=== PATIENT | male | born 1965 | race Caucasian/White ===

== ENCOUNTER 2022-01-14 13:53 | Emergency (ER) | payer MEDICARE, MEDICAID ==
[~2022-01-14] VITALS: Ht 182.9 cm; Wt 63.6 kg
[2022-01-14] MEDS ORDERED: CARB1TAB20 (14:07)
[2022-01-14] MEDS ORDERED: CLON0.5T2 (14:07)
[2022-01-14] MEDS ORDERED: POLY510P14 (14:07)
[2022-01-14] MEDS ORDERED: BUSP10TA (14:07)
[2022-01-14] MEDS ORDERED: VENL75TA2 (14:07)
[2022-01-14] MEDS ORDERED: BACTDSTA (14:07)
[2022-01-14] MEDS ORDERED: clonazePAM 1 MG TAB PO ONE (14:15)
[2022-01-14 15:34] LABS: BASO % 0.3 % (0.0-1.0); EOS % 0.3 % (0.0-3.0); HEMATOCRIT 43.8 % (42.0-52.0); HEMOGLOBIN 16.2 g/dl (13.5-17.5); LYMPH # 1.2 10^3/uL (1.5-5.0); LYMPH % 16.1 % (24.0-44.0); MEAN CORPUSCULAR HEMOGLOBIN 32.3 pg (27.0-33.0); MEAN CORPUSCULAR VOLUME 87.3 fl (80.0-96.0); MONO # 0.5 10^3/uL (0.0-0.8); MONO % 5.9 % (2.0-8.0); NEUTROPHILS # 5.9 10^3/uL (1.5-8.5); NEUTROPHILS % 77.1 % (36.0-66.0); PLATELET COUNT, AUTOMATED 223 10^3/uL (150-450); RED BLOOD COUNT 5.02 10^6/uL (4.30-6.10); WHITE BLOOD COUNT 7.6 10^3/uL (4.0-10.0)
[2022-01-14 15:47] LABS: ALT/SGPT 55 U/L (12-78); BILIRUBIN,DIRECT 0.2 MG/DL (0.0-0.2); BILIRUBIN,TOTAL 0.5 MG/DL (0.2-1.0); BLOOD UREA NITROGEN 10 MG/DL (7-18); CALCIUM LEVEL 9.5 MG/DL (8.5-10.1); CARBAMAZEPINE (TEGRETOL) LEVEL 4.9 UG/ML (4.0-10.0); CARBON DIOXIDE LEVEL 22 MEQ/L (21-32); CHLORIDE LEVEL 97 MEQ/L (98-107); CREATININE FOR GFR 0.61 MG/DL (0.70-1.30); GLOMERULAR FILTRATION RATE > 60.0 (>56); GLUCOSE, FASTING 92 MG/DL (70-100); POTASSIUM SERUM 4.5 MEQ/L (3.5-5.1); SODIUM LEVEL 129 MEQ/L (136-145)
[2022-01-14 17:32] VITALS: BP 104/86
== END 2022-01-14 17:37 | disposition home or self-care (01) ==
LOC: M ED 13:53 → EDBD 13:53 → M ED 17:37
DX: F43.0 Acute stress reaction (principal); E87.1 Hypo-osmolality and hyponatremia; I69.351 Hemiplegia and hemiparesis following cerebral infarction affecting right dominant side; R56.9 Unspecified convulsions; Z79.899 Other long term (current) drug therapy

== ENCOUNTER → 2025-03-29 | Outpatient (CLI) | payer MEDICARE, MEDICAID ==
[~2025-03-29] MED LIST: BACTDSTA; BUSP10TA; CARB-19; CLON0.5T2; POLY510P14; VENL75TA2
== END ==
LOC: M PLARAD 08:04
PROVIDERS: ATTEND Nurse Practitioner
DX: R22.1 Localized swelling, mass and lump, neck (principal); C76.0 Malignant neoplasm of head, face and neck
CPT/HCPCS: 78815; A9552

== ENCOUNTER → 2025-04-19 | Outpatient (CLI) | payer MEDICARE, MEDICAID ==
[~2025-04-19] MED LIST changes: +ACET1TAB55 PO; +CARB300C6; +MIRA3350 PO; +MOM30SS PO; +OXYC-517 PO; +SENN1TAB85 PO; +SODI1TAB12 PO; +TRAM50TA2 PO
== END ==
LOC: M ONCR 14:06
PROVIDERS: ATTEND General Practice
DX: C01 Malignant neoplasm of base of tongue (principal); Z86.73 Personal history of transient ischemic attack (TIA), and cerebral infarction without residual deficits; Z79.899 Other long term (current) drug therapy; Z92.3 Personal history of irradiation; Z86.011 Personal history of benign neoplasm of the brain
CPT/HCPCS: 10005; 88305; G0463

== ENCOUNTER 2025-04-27 13:50 | Outpatient (RCR) | payer MEDICARE, MEDICAID ==
[~2025-04-27 13:50] MED LIST changes: -BACTDSTA; +SULF-8
[2025-05-10] MEDS ORDERED: OXYC-141 PO (16:23)
[2025-05-10] MEDS ORDERED: OXYC-517 PO (16:23)
== END 2025-05-09 ==
LOC: M ONCR 13:50
PROVIDERS: ATTEND General Practice
DX: Z51.0 Encounter for antineoplastic radiation therapy (principal); C01 Malignant neoplasm of base of tongue

== ENCOUNTER → 2025-05-10 | Outpatient (CLI) | payer MEDICARE, MEDICAID ==
[~2025-05-10] MED LIST changes: +OXYC-141 PO
[2025-05-10 15:38] VITALS: BP 129/86; O2SAT 97
== END ==
LOC: M PAL 15:11
PROVIDERS: ATTEND Physician Assistant
DX: Z51.5 Encounter for palliative care (principal); C01 Malignant neoplasm of base of tongue; Z92.21 Personal history of antineoplastic chemotherapy; Z92.3 Personal history of irradiation; Z86.018 Personal history of other benign neoplasm; Z79.891 Long term (current) use of opiate analgesic

== ENCOUNTER 2025-05-25 04:02 | Emergency (ER) | payer MEDICARE, MEDICAID ==
[~2025-05-25] VITALS: Ht 177.8 cm; Wt 60.8 kg
[2025-05-25] MEDS ORDERED: ISOVUE-370 76% 100 ML VIAL As Ordered ONE (04:29)
[2025-05-25 04:45] LABS: BASO # 0.0 10^3/uL (0.0-0.2); BASO % 0.1 % (0.0-1.0); EOS # 0.0 10^3/uL (0.0-0.5); EOS % 0.3 % (0.0-3.0); LYMPH # 1.1 10^3/uL (1.5-5.0); LYMPH % 15.0 % (24.0-44.0); MONO # 0.4 10^3/uL (0.0-0.8); MONO % 5.9 % (2.0-8.0); NEUTROPHILS # 5.5 10^3/uL (1.5-8.5); NEUTROPHILS % 78.3 % (36.0-66.0); PLATELET COUNT, AUTOMATED 185 10^3/uL (150-450)
[2025-05-25 05:11] LABS: INR 1.16
[2025-05-25] MEDS: ONDANSETRON 4MG/2ML VIAL IV ONE (06:52)
[2025-05-25] MEDS: MORPHINE 4 MG/ML 1 ML VIAL IV PRN (06:52)
[2025-05-25 07:45] VITALS: TEMP 98.4
[2025-05-25] MEDS ORDERED: OXYC-517 PO (10:15)
[2025-05-25] MEDS ORDERED: OXYC-141 PO (10:21)
[2025-05-25] MEDS ORDERED: CARB300C PO (10:21)
[2025-05-25] MEDS ORDERED: HOME MED LIST COMPLETE! XX SCH (10:25)
[2025-05-25] MEDS ORDERED: ACETAMINOPHEN 325 MG TAB PO PRN (10:50)
[2025-05-25] MEDS ORDERED: MOM 30 ML SUSPENSION UDC PO PRN (10:50)
[2025-05-25 11:45] VITALS: BP 123/78; O2SAT 95
[2025-05-25] MEDS: MIRALAX *UNIT DOSE* 17 GM PACKET PO SCH (11:56)
[2025-05-25] MEDS: SODIUM CHLORIDE 1 GM TAB PO SCH (11:58)
[2025-05-25] MEDS: SENNOSIDES/DOCUSATE SODIUM 8.6 MG/50MG TAB PO SCH (11:58)
[2025-05-25] MEDS: oxyCODONE 10 MG CR TAB PO SCH (11:59)
[2025-05-25 12:17] LABS: BASO # 0.0 10^3/uL (0.0-0.2); BASO % 0.3 % (0.0-1.0); EOS # 0.0 10^3/uL (0.0-0.5); EOS % 0.3 % (0.0-3.0); LYMPH # 1.0 10^3/uL (1.5-5.0); LYMPH % 14.2 % (24.0-44.0); MONO # 0.4 10^3/uL (0.0-0.8); MONO % 5.9 % (2.0-8.0); NEUTROPHILS # 5.7 10^3/uL (1.5-8.5); NEUTROPHILS % 78.9 % (36.0-66.0); PLATELET COUNT, AUTOMATED 202 10^3/uL (150-450)
== END 2025-05-25 15:01 | disposition home or self-care (01) ==
LOC: EDBD 04:02 → M ED 04:02
DX: C02.9 Malignant neoplasm of tongue, unspecified (principal); R58 Hemorrhage, not elsewhere classified; N40.0 Benign prostatic hyperplasia without lower urinary tract symptoms; Z86.73 Personal history of transient ischemic attack (TIA), and cerebral infarction without residual deficits; Z79.1 Long term (current) use of non-steroidal anti-inflammatories (NSAID); Z79.899 Other long term (current) drug therapy
CPT/HCPCS: 70491; 80047; 83605; 85025; 85610; 85730; 96374; 96375; 99284; J2405; Q9967

== ENCOUNTER 2025-06-06 12:00 | Emergency (ER) | payer MEDICARE, MEDICAID ==
[~2025-06-06] VITALS: Ht 175.3 cm; Wt 56.4 kg
[~2025-06-06 12:00] MED LIST changes: +CARB300C PO
[2025-06-06 14:15] VITALS: BP 112/71; TEMP 99.3; O2SAT 96
== END 2025-06-06 14:26 | disposition home or self-care (01) ==
LOC: M ED 12:00
DX: M54.2 Cervicalgia (principal); K21.9 Gastro-esophageal reflux disease without esophagitis; G40.909 Epilepsy, unspecified, not intractable, without status epilepticus; I69.398 Other sequelae of cerebral infarction; F41.9 Anxiety disorder, unspecified; Z79.1 Long term (current) use of non-steroidal anti-inflammatories (NSAID); Z79.899 Other long term (current) drug therapy

== ENCOUNTER 2025-06-07 07:47 | Outpatient (RCR) | payer MEDICARE, MEDICAID ==
[2025-05-17 09:12] LABS: BASO # 0.0 10^3/uL (0.0-0.2); BASO % 0.4 % (0.0-1.0); EOS # 0.1 10^3/uL (0.0-0.5); EOS % 0.8 % (0.0-3.0); LYMPH # 1.2 10^3/uL (1.5-5.0); LYMPH % 13.8 % (24.0-44.0); MONO # 0.5 10^3/uL (0.0-0.8); MONO % 5.2 % (2.0-8.0); NEUTROPHILS # 7.1 10^3/uL (1.5-8.5); NEUTROPHILS % 79.6 % (36.0-66.0); PLATELET COUNT, AUTOMATED 185 10^3/uL (150-450)
[2025-05-17 09:31] LABS: ALT/SGPT 97 U/L (7.0-40); AST/SGOT 64 U/L (<34); CALCIUM LEVEL 8.4 MG/DL (8.5-10.1); CARBON DIOXIDE LEVEL 28 MMOL/L (20-31); CHLORIDE LEVEL 103 MMOL/L (98-107); CREATININE FOR GFR 0.43 MG/DL (0.70-1.30); GLOMERULAR FILTRATION RATE > 90.0 (>56); MAGNESIUM LEVEL 2.0 MG/DL (1.8-2.4); POTASSIUM SERUM 4.2 MMOL/L (3.5-5.1); SODIUM LEVEL 138 MMOL/L (136-145)
== END 2025-06-09 ==
LOC: M ONCR 07:47
PROVIDERS: ATTEND General Practice
DX: Z51.0 Encounter for antineoplastic radiation therapy (principal); C01 Malignant neoplasm of base of tongue